=== PATIENT | male | born 1960 | race Caucasian/White ===

== ENCOUNTER 2020-02-09 09:31 | Emergency (ER) | payer BC ==
[~2020-02-09] VITALS: Ht 172.7 cm; Wt 79.5 kg
[2020-02-09 10:46] LABS: EOS # 0.2 (0.04-0.40); EOS % 2.2 % (0.0-4.0); HEMATOCRIT 43.1 % (42.0-52.0); HEMOGLOBIN 14.2 g/dL (13.5-18.0); LYMPH# 1.4 (1.50-4.00); MEAN CELL VOLUME 94 fl (78-100); MEAN CORPUSCULAR HEMOGLOBIN 31 pg (27-31); MEAN CORPUSCULAR HGB CONC 33 g/dL (33-37); MEAN PLATELET VOLUME 10.2 fl (7.4-10.4); MONO # 0.6 (0.20-0.80); NEU # 5.1 (1.40-6.50); PLATELET COUNT 287 K/mm3 (130-400); RED BLOOD COUNT 4.57 M/mm3 (4.20-5.60); RED CELL DISTRIBUTION WIDTH 13.7 % (11.5-14.5); WHITE BLOOD COUNT 7.3 K/mm3 (4.8-10.8)
[2020-02-09 10:53] LABS: POTASSIUM 3.9 mmol/L (3.5-5.1); SODIUM 142 mmol/L (136-145)
[2020-02-09 10:54] LABS: ALBUMIN 3.8 g/dL (3.5-5.0); CALCIUM 8.6 mg/dL (8.3-10.5)
[2020-02-09 10:56] LABS: GLUCOSE 106 mg/dL (75-110); TOTAL PROTEIN 6.7 g/dL (6.4-8.3)
[2020-02-09 10:57] LABS: CARBON DIOXIDE 25 mmol/L (22-29); TOTAL BILIRUBIN 0.4 mg/dL (0.2-1.2)
[2020-02-09 11:01] LABS: AST-SGOT 23 U/L (5-34)
[2020-02-09 11:04] LABS: ALT/SGPT 19 U/L (0-55)
[2020-02-09 11:10] LABS: TROPONIN-I < 0.03 ng/mL (<0.030)
[2020-02-09] MEDS ORDERED: AZITHROMYCIN 250MGPK PO (11:22)
[2020-02-09 11:30] VITALS: BP 158/81
== END 2020-02-09 11:30 | disposition home or self-care (01) ==
LOC: ED 09:31
PROVIDERS: Nurse Practitioner
DX: I10 Essential (primary) hypertension (principal); R05 Cough; Z20.828 Contact with and (suspected) exposure to other viral communicable diseases

== ENCOUNTER → 2020-02-09 | Outpatient (CLI) | payer BC ==
[~2020-02-09] MED LIST: AZITHROMYCIN 250MGPK PO
[2020-02-09 11:30] VITALS: BP 158/81
== END ==
LOC: LAB 08:04
DX: J02.9 Acute pharyngitis, unspecified (principal); R07.89 Other chest pain

== ENCOUNTER 2020-03-07 08:12 | Emergency (ER) | payer BC ==
[~2020-03-07] VITALS: Ht 175.3 cm; Wt 79.5 kg
[2020-03-07 09:30] LABS: EOS # 0.1 (0.04-0.40); EOS % 1.5 % (0.0-4.0); HEMOGLOBIN 15.9 g/dL (13.5-18.0); LYMPH# 1.4 (1.50-4.00); MEAN CELL VOLUME 93 fl (78-100); MEAN CORPUSCULAR HEMOGLOBIN 31 pg (27-31); MEAN CORPUSCULAR HGB CONC 33 g/dL (33-37); MEAN PLATELET VOLUME 10.6 fl (7.4-10.4); MONO # 0.7 (0.20-0.80); NEU # 5.9 (1.40-6.50); PLATELET COUNT 269 K/mm3 (130-400); RED BLOOD COUNT 5.18 M/mm3 (4.20-5.60); RED CELL DISTRIBUTION WIDTH 13.6 % (11.5-14.5); WHITE BLOOD COUNT 8.2 K/mm3 (4.8-10.8)
[2020-03-07 09:37] LABS: POTASSIUM 3.9 mmol/L (3.5-5.1); SODIUM 141 mmol/L (136-145)
[2020-03-07 09:38] LABS: CALCIUM 8.9 mg/dL (8.3-10.5)
[2020-03-07 09:40] LABS: TOTAL PROTEIN 6.9 g/dL (6.4-8.3)
[2020-03-07 09:41] LABS: CARBON DIOXIDE 25 mmol/L (22-29); GLUCOSE 95 mg/dL (75-110); TOTAL BILIRUBIN 0.4 mg/dL (0.2-1.2)
[2020-03-07 09:45] LABS: AST-SGOT 17 U/L (5-34)
[2020-03-07 09:48] LABS: ALT/SGPT 13 U/L (0-55)
[2020-03-07 09:55] LABS: TROPONIN-I < 0.03 ng/mL (<0.030)
[2020-03-07] MEDS ORDERED: AZITHROMYCIN 250MGPK PO (12:53)
[2020-03-07 13:30] VITALS: BP 162/92
== END 2020-03-07 13:30 | disposition home or self-care (01) ==
LOC: ED 08:12
PROVIDERS: Nurse Practitioner
DX: U07.1 COVID-19 (principal); J12.89 Other viral pneumonia; I10 Essential (primary) hypertension
CPT/HCPCS: Q9967

== ENCOUNTER 2020-03-14 10:34 | Emergency (ER) | payer BC ==
[~2020-03-14] VITALS: Ht 172.7 cm; Wt 84.1 kg
[~2020-03-14 10:34] MED LIST changes: -CEFDINIR300 MG PO; -LORAZEPAM1 M1 PO; -PROAIR HFA0.09 MG/AC IH; -PROMETHAZINE-C473 ML PO; -ROXICODONE5 M1 PO; -SUNMARK MUCUS600 MG PO; -ZESTRIL5 M1 PO
[2020-03-14] MEDS ORDERED: CEFDINIR300 MG PO (11:29)
[2020-03-14] MEDS ORDERED: SUNMARK MUCUS600 MG PO (11:30)
[2020-03-14] MEDS ORDERED: LORAZEPAM1 M1 PO (11:31)
[2020-03-14] MEDS ORDERED: ROXICODONE5 M1 PO (11:32)
[2020-03-14] MEDS ORDERED: PROMETHAZINE-C473 ML PO (11:33)
[2020-03-14] MEDS ORDERED: PROAIR HFA0.09 MG/AC IH (11:50)
[2020-03-14] MEDS ORDERED: ZESTRIL5 M1 PO (11:50)
[2020-03-14 12:09] VITALS: BP 156/92
== END 2020-03-14 12:09 | disposition home or self-care (01) ==
LOC: ED 10:34
DX: U07.1 COVID-19 (principal); M79.10 Myalgia, unspecified site; I10 Essential (primary) hypertension; F41.9 Anxiety disorder, unspecified
CPT/HCPCS: J7030; Q9967

== ENCOUNTER → 2020-03-14 | Outpatient (CLI) | payer BC ==
[2020-03-07 13:30] VITALS: BP 162/92
[~2020-03-14] MED LIST changes: +CEFDINIR300 MG PO; +LORAZEPAM1 M1 PO; +PROAIR HFA0.09 MG/AC IH; +PROMETHAZINE-C473 ML PO; +ROXICODONE5 M1 PO; +SUNMARK MUCUS600 MG PO; +ZESTRIL5 M1 PO
[2020-03-14 09:48] LABS: EOS # 0.1 (0.04-0.40); EOS % 1.1 % (0.0-4.0); HEMATOCRIT 45.5 % (42.0-52.0); HEMOGLOBIN 15.4 g/dL (13.5-18.0); LYMPH# 1.3 (1.50-4.00); MEAN CELL VOLUME 91 fl (78-100); MEAN CORPUSCULAR HEMOGLOBIN 31 pg (27-31); MEAN CORPUSCULAR HGB CONC 34 g/dL (33-37); MEAN PLATELET VOLUME 10.2 fl (7.4-10.4); MONO # 0.6 (0.20-0.80); NEU # 6.5 (1.40-6.50); PLATELET COUNT 259 K/mm3 (130-400); RED BLOOD COUNT 4.98 M/mm3 (4.20-5.60); RED CELL DISTRIBUTION WIDTH 13.3 % (11.5-14.5); WHITE BLOOD COUNT 8.5 K/mm3 (4.8-10.8)
[2020-03-14 09:59] LABS: ALBUMIN 4.1 g/dL (3.5-5.0); POTASSIUM 4.5 mmol/L (3.5-5.1); SODIUM 140 mmol/L (136-145)
[2020-03-14 10:01] LABS: CALCIUM 9.3 mg/dL (8.3-10.5)
[2020-03-14 10:02] LABS: D-DIMER 1.17 mg/L FEU (0.15-0.50); GLUCOSE 112 mg/dL (75-110); TOTAL PROTEIN 7.1 g/dL (6.4-8.3)
[2020-03-14 10:03] LABS: CARBON DIOXIDE 23 mmol/L (22-29)
[2020-03-14 10:04] LABS: TOTAL BILIRUBIN 0.4 mg/dL (0.2-1.2)
[2020-03-14 10:07] LABS: AST-SGOT 18 U/L (5-34)
[2020-03-14 10:08] LABS: ALT/SGPT 21 U/L (0-55)
[2020-03-14 10:51] LABS: ERYTHROCYTE SEDIMENTATION RATE 12 mm/hr (0-20)
[2020-03-14 11:02] LABS: TROPONIN-I < 0.03 ng/mL (<0.030)
== END ==
LOC: LAB 09:27
PROVIDERS: Nurse Practitioner
DX: U07.1 COVID-19 (principal)

== ENCOUNTER → 2020-05-16 | Outpatient (CLI) | payer BC ==
[~2020-05-16] MED LIST changes: +CEFDINIR300 MG PO; +LORAZEPAM1 M1 PO; +PROAIR HFA0.09 MG/AC IH; +PROMETHAZINE-C473 ML PO; +ROXICODONE5 M1 PO; +SUNMARK MUCUS600 MG PO; +ZESTRIL5 M1 PO
[2020-05-16 16:47] LABS: EOS # 0.1 (0.04-0.40); EOS % 1.1 % (0.0-4.0); HEMATOCRIT 45.3 % (42.0-52.0); HEMOGLOBIN 15.3 g/dL (13.5-18.0); LYMPH# 1.6 (1.50-4.00); MEAN CELL VOLUME 94 fl (78-100); MEAN CORPUSCULAR HEMOGLOBIN 32 pg (27-31); MEAN CORPUSCULAR HGB CONC 34 g/dL (33-37); MONO # 0.8 (0.20-0.80); NEU # 6.8 (1.40-6.50); PLATELET COUNT 249 K/mm3 (130-400); RED BLOOD COUNT 4.81 M/mm3 (4.20-5.60); RED CELL DISTRIBUTION WIDTH 13.6 % (11.5-14.5); WHITE BLOOD COUNT 9.4 K/mm3 (4.8-10.8)
[2020-05-16 16:59] LABS: ALBUMIN 4.2 g/dL (3.5-5.0); POTASSIUM 4.1 mmol/L (3.5-5.1)
[2020-05-16 17:01] LABS: CALCIUM 8.7 mg/dL (8.3-10.5)
[2020-05-16 17:02] LABS: TOTAL PROTEIN 7.1 g/dL (6.4-8.3)
[2020-05-16 17:04] LABS: TOTAL BILIRUBIN 0.5 mg/dL (0.2-1.2)
== END ==
LOC: RAD 16:11
PROVIDERS: Physician Assistant
DX: U07.1 COVID-19 (principal); M94.0 Chondrocostal junction syndrome [Tietze]; I10 Essential (primary) hypertension; K21.9 Gastro-esophageal reflux disease without esophagitis; H61.23 Impacted cerumen, bilateral; Z87.01 Personal history of pneumonia (recurrent)

== ENCOUNTER → 2020-07-18 | Outpatient (CLI) | payer BC | LOC: RAD 16:31 | DX: R05 Cough (principal); Z86.19 Personal history of other infectious and parasitic diseases ==

== ENCOUNTER → 2021-11-24 | Outpatient (CLI) | payer BC ==
[~2021-11-24] MED LIST changes: +AMOXIL500 M1 PO
== END ==
LOC: LAB 16:04
DX: Z20.822 Contact with and (suspected) exposure to COVID-19 (principal); Z86.16 Personal history of COVID-19

== ENCOUNTER → 2022-05-06 | Outpatient (CLI) | payer BC ==
[2022-05-06 17:23] LABS: BASO # 0.06 K/mm3 (0.02-0.10); EOS # 0.18 K/mm3 (0.04-0.40); EOS % 1.7 % (0.0-4.0); HEMATOCRIT 46.3 % (42.0-52.0); HEMOGLOBIN 15.8 g/dL (13.5-18.0); LYMPH# 1.91 K/mm3 (1.50-4.00); MEAN CELL VOLUME 92 fl (78-100); MEAN CORPUSCULAR HEMOGLOBIN 32 pg (27-31); MEAN CORPUSCULAR HGB CONC 34 g/dL (33-37); MEAN PLATELET VOLUME 9.6 fl (7.4-10.4); NEU # 7.77 K/mm3 (1.40-6.50); PLATELET COUNT 320 K/mm3 (130-400); RED BLOOD COUNT 5.02 M/mm3 (4.20-5.60); RED CELL DISTRIBUTION WIDTH 12.7 % (11.5-14.5); WHITE BLOOD COUNT 10.8 K/mm3 (4.8-10.8)
[2022-05-06 17:27] LABS: ALBUMIN 4.3 g/dL (3.4-4.8)
[2022-05-06 17:29] LABS: CALCIUM 9.3 mg/dL (8.3-10.5)
[2022-05-06 17:30] LABS: TOTAL PROTEIN 7.1 g/dL (6.2-8.1)
[2022-05-06 17:32] LABS: TOTAL BILIRUBIN 0.5 mg/dL (0.2-1.2)
== END ==
LOC: LAB 16:44
PROVIDERS: Physician Assistant
DX: K21.9 Gastro-esophageal reflux disease without esophagitis (principal); I10 Essential (primary) hypertension; J98.9 Respiratory disorder, unspecified

== ENCOUNTER → 2022-06-01 | Outpatient (CLI) | payer BC | LOC: RAD 15:52 | DX: R05.9 Cough, unspecified (principal); Z87.01 Personal history of pneumonia (recurrent) ==

== ENCOUNTER → 2022-11-30 | Outpatient (CLI) | payer BC | LOC: LAB 17:03 | DX: R05.9 Cough, unspecified (principal) ==